=== PATIENT | male | born 1970 | race African-American/Black ===

== ENCOUNTER 2019-12-19 06:02 | Day surgery (SDC) | payer OTHER ==
[~2019-12-19] VITALS: Ht 170.2 cm; Wt 97.0 kg
[2019-12-19] MEDS ORDERED: CICL6.1H3 IH (06:39)
[2019-12-19] MEDS ORDERED: HYDR12.58 PO (06:39)
[2019-12-19] MEDS ORDERED: TRAZ-123 PO (06:39)
[2019-12-19] MEDS ORDERED: ATOR40TA59 PO (06:39)
[2019-12-19] MEDS ORDERED: FLUO60TA PO (06:39)
[2019-12-19] MEDS ORDERED: HYDROmorphone 2 MG/ML VIAL IV PRN (07:00)
[2019-12-19] MEDS ORDERED: ONDANSETRON PF 4 MG/2 ML VIAL. IV PRN (07:00)
[2019-12-19] MEDS ORDERED: LIDOCAINE 1% PF 2 ML VIAL. ID PRN (07:00)
[2019-12-19] MEDS ORDERED: fentaNYL PF VIAL 100 MCG/2 ML VIAL IV PRN ×2 (07:00)
[2019-12-19] MEDS ORDERED: IV RINGERS,LACTATED 1000ML 1,000 ML IV SCH (07:00)
[2019-12-19] MEDS ORDERED: PROCHLORPERAZINE 10 MG/2 ML VIAL. IV PRN (07:00)
[2019-12-19] MEDS ORDERED: BUPIVACAINE MPF 0.5% 30 ML VIAL. ONE (07:06)
[2019-12-19] MEDS ORDERED: BUPIVACAINE-EPI 0.5%-1:200000 MPF 30 ML VIAL. ONE (07:06)
[2019-12-19] MEDS ORDERED: DEXAMETHASONE SOD PHOS 4 MG/ML VIAL ONE (07:43)
[2019-12-19] MEDS ORDERED: ONDANSETRON PF 4 MG/2 ML VIAL. ONE (07:43)
[2019-12-19] MEDS ORDERED: MIDAZOLAM HCL/PF 2 MG/2 ML VIAL. ONE (07:43)
[2019-12-19] MEDS ORDERED: SUCCINYLCHOLINE 200 MG/10 ML VIAL. ONE (07:43)
[2019-12-19] MEDS ORDERED: PROPOFOL 20 ML IV ONE (07:43)
[2019-12-19] MEDS ORDERED: fentaNYL PF VIAL 100 MCG/2 ML VIAL ONE (07:43)
[2019-12-19] MEDS ORDERED: ROCURONIUM 50 MG/5 ML VIAL. ONE (07:43)
[2019-12-19] MEDS ORDERED: LIDOCAINE 2% PF 5 ML VIAL. ONE (07:43)
--- NOTE | 2019-12-19 08:11 | PDOC1 ---
History and Physical Date of Admission Date of Admission DATE: 12/19/19 TIME: 08:08 Identification/Chief Complaint Chief Complaint umbilical hernia Source Source: Chart review, Patient History of Present Illness History of Present Illness Ankush is a 49-year-old male inmate with a long-standing umbilical hernia. Of late this is become more tender. Denies nausea, vomiting, diarrhea. Past Medical History Cardiovascular: HTN Hepatobiliary: Other (hyperlipidemia) Past Surgical History Past Surgical History: No pertinent history Family History Family History: No Significant Social History Smoke: No ALCOHOL: none Drugs: None Current Medications Current Medications Current Medications Ondansetron HCl (Zofran) 4 mg PRN Q6HRS PRN IV NAUSEA/VOMITING; Start 12/19/19 at 07:00; Stop 12/20/19 at 06:59 Fentanyl Citrate (Fentanyl 2ml Vial) 25 mcg PRN Q5MIN PRN IV MILD PAIN 1-3; Start 12/19/19 at 07:00; Stop 12/20/19 at 06:59 Fentanyl Citrate (Fentanyl 2ml Vial) 50 mcg PRN Q5MIN PRN IV MODERATE TO SEVERE PAIN; Start 12/19/19 at 07:00; Stop 12/20/19 at 06:59 Morphine Sulfate (Morphine Sulfate) 1 mg PRN Q10MIN PRN IV SEVERE PAIN 7-10; Start 12/19/19 at 07:00; Stop 12/20/19 at 06:59 Ringer's Solution 1,000 ml @ 30 mls/hr Q24H IV Last administered on 12/19/19at 06:56; Start 12/19/19 at 07:00; Stop 12/19/19 at 18:59 Lidocaine HCl (Xylocaine-Mpf 1% 2ml Vial) 2 ml PRN 1X PRN ID PRIOR TO IV START; Start 12/19/19 at 07:00; Stop 12/20/19 at 06:59 Hydromorphone HCl (Dilaudid) 0.5 mg PRN Q10MIN PRN IV SEV PAIN, Second choice; Start 12/19/19 at 07:00; Stop 12/20/19 at 06:59 Prochlorperazine Edisylate (Compazine) 5 mg PACU PRN PRN IV NAUSEA, MRX1; Start 12/19/19 at 07:00; Stop 12/20/19 at 06:59 Levofloxacin/ Dextrose 100 ml @ 100 mls/hr 1X PREOP PRN IV PRIOR TO PROCEDURE; Start 12/19/19 at 06:00; Stop 12/19/19 at 18:00 Bupivacaine HCl/ Epinephrine Bitart (Sensorcain-Epi 0.5%-1:112840 Mpf) 30 ml STK-MED ONCE .ROUTE ; Start 12/19/19 at 07:06; Stop 12/19/19 at 07:07; Status DC Bupivacaine HCl (Sensorcaine Mpf 0.5%) 30 ml STK-MED ONCE .ROUTE ; Start 12/19/19 at 07:06; Stop 12/19/19 at 07:07; Status DC Propofol 20 ml @ As Directed STK-MED ONCE IV ; Start 12/19/19 at 07:43; Stop 12/19/19 at 07:43; Status DC Lidocaine HCl (Lidocaine Pf 2% Vial) 5 ml STK-MED ONCE .ROUTE ; Start 12/19/19 at 07:43; Stop 12/19/19 at 07:43; Status DC Ondansetron HCl (Zofran) 4 mg STK-MED ONCE .ROUTE ; Start 12/19/19 at 07:43; Stop 12/19/19 at 07:43; Status DC Dexamethasone Sodium Phosphate (Decadron) 4 mg STK-MED ONCE .ROUTE ; Start 12/19/19 at 07:43; Stop 12/19/19 at 07:43; Status DC Succinylcholine Chloride (Anectine) 200 mg STK-MED ONCE .ROUTE ; Start 12/19/19 at 07:43; Stop 12/19/19 at 07:43; Status DC Rocuronium [place] (Zemuron) 50 mg STK-MED ONCE .ROUTE ; Start 12/19/19 at 07:43; Stop 12/19/19 at 07:43; Status DC Fentanyl Citrate (Fentanyl 2ml Vial) 100 mcg STK-MED ONCE .ROUTE ; Start 12/19/19 at 07:43; Stop 12/19/19 at 07:44; Status DC Midazolam HCl (Versed) 2 mg STK-MED ONCE .ROUTE ; Start 12/19/19 at 07:43; Stop 12/19/19 at 07:44; Status DC Albuterol Sulfate (Ventolin Hfa) 1 puff 1X ONCE INH ; Start 12/19/19 at 08:15; Stop 12/19/19 at 08:16 Active Scripts Active Reported Hydrochlorothiazide Tablet (Hydrochlorothiazide) 12.5 Mg Tablet 12.5 Mg PO DAILY Fluoxetine Hcl 60 Mg Tablet 80 Mg PO DAILY Atorvastatin Calcium 40 Mg Tablet 40 Mg PO DAILY Trazodone Hcl 100 Mg Tablet 100 Mg PO HS [place] (Ciclesonide) 6.1 Gm Hfa.aer.ad 6.1 Gm IH BID Allergies Allergies: Coded Allergies: Penicillins (Verified Allergy, Intermediate, 12/19/19) ROS Review of System Negative with the exception of present complaints Physical Exam General: Alert, No acute distress HEENT: Atraumatic Lungs: Normal air movement Heart: RRR Abdomen: Soft, Other (nondistended, that is umbilical fullness which is partially reducible) Vitals Vitals Vital Signs Date Time Temp Pulse Resp B/P (MAP) Pulse Ox O2 Delivery O2 Flow Rate FiO2 12/19/19 06:47 98.4 66 20 149/85 97 Room Air 98.4 VTE Prophylaxis Ordered VTE Prophylaxis Devices: Yes VTE Pharmacological Prophylaxi: No Assessment/Plan Assessment/Plan Umbilical hernia Explained risks of repair including but not limited to bleeding, infection, recurrence. We'll proceed ROSALIND CHAVARRIA MD Dec 19, 2019 08:11
[2019-12-19] MEDS ORDERED: ALBUTEROL SULFATE 8GM INHALER. INH ONE (08:15)
[2019-12-19] MEDS ORDERED: GLYCOPYRROLATE 1 MG/5 ML VIAL. ONE (08:40)
[2019-12-19] MEDS ORDERED: NEOSTIGMINE METHYLSULFATE 5 MG/5 ML SYRINGE. ONE (08:40)
[2019-12-19] MEDS ORDERED: SEVOFLURANE 31 TO 60 MINUTES. IH ONE (08:44)
--- NOTE | 2019-12-19 09:18 | DISCH ---
DISCHARGE INSTRUCTIONS Condition on Discharge Condition on Discharge: Stable Activity After Discharge Activity Instructions for Disc: Activity as tolerated, Avoid exertion Lifting Instructions after Dis: No heavy lifting Diet after Discharge Diet after Discharge: Regular Wound Incision Care Wound/Incision Care: Ice to area for comfort Other wound/incision instructi: abdominal binder, dimas shower Thursday Follow-Up Follow up with: Mars two weeks ROSALIND CHAVARRIA MD Dec 19, 2019 09:18
--- NOTE | 2019-12-19 09:22 | PDOC ---
BRIEF OPERATIVE NOTE Date: Dec 19, 2019 Pre-Op Diagnosis incarcerated umbilical hernia Post-Op Diagnosis same Procedure Performed primary repair Surgeon Mars Anesthesia Type: General Blood Loss 5cc IV Fluid 500cc Specimens Obtained sack and incarcerated contents Findings incarcerated pre peritoneal fat Complications none Operative Note Wk # [id number] ROSALIND CHAVARRIA MD Dec 19, 2019 09:22
[2019-12-19] MEDS: MORPHINE SULFATE 2 MG/ML VIAL. IV PRN ×2 (09:43→09:53)
--- NOTE | 2019-12-19 09:49 | OP ---
DATE OF SURGERY: 12/19/2019 PREOPERATIVE DIAGNOSIS: Incarcerated umbilical hernia. POSTOPERATIVE DIAGNOSIS: Incarcerated umbilical hernia. PROCEDURE: Primary repair. SURGEON: Quinton Chavarria MD ANESTHESIA: General endotracheal. ESTIMATED BLOOD LOSS: 5 mL. INTRAVENOUS FLUIDS: 500 mL. DESCRIPTION OF PROCEDURE: The patient brought to the operating suite, given a general endotracheal anesthetic and the abdomen prepped and draped in usual sterile fashion. An infraumbilical incision was infiltrated with 0.5% plain Marcaine. Incision made and dissection carried down to the anterior sheath. The hernia was encircled with careful blunt dissection and a Migel drain placed around it. The umbilical skin was then freed from the hernia contents, which were then excised by ligating with 2-0 Vicryl. A small defect was then closed with interrupted inverted 0 PDS. A second row of 0 Vicryl in a running fashion was used to reinforce the repair. Correct sponge count was obtained. Good hemostasis was present. The umbilical skin was tacked to the underlying repair with 3-0 Vicryl. Skin closed with subcuticular 4-0 Monocryl. Steri-Strips and sterile dressing applied. Abdominal binder placed. The patient was awakened from his anesthetic and taken to the recovery room in satisfactory condition. QUINTON CHAVARRIA MD DR: DEX/izabella JOB#: [id number] / [id number]
[2019-12-19 10:15] VITALS: BP 136/85
== END 2019-12-19 10:40 | disposition home or self-care (01) ==
LOC: SURG 06:02
PROVIDERS: ATTEND Surgery
DX: K42.0 Umbilical hernia with obstruction, without gangrene (principal); I10 Essential (primary) hypertension; E78.00 Pure hypercholesterolemia, unspecified; K21.9 Gastro-esophageal reflux disease without esophagitis; F32.9 Major depressive disorder, single episode, unspecified; F41.9 Anxiety disorder, unspecified; F14.90 Cocaine use, unspecified, uncomplicated; E66.9 Obesity, unspecified; Z68.32 Body mass index [BMI] 32.0-32.9, adult; Z87.891 Personal history of nicotine dependence; Z87.39 Personal history of other diseases of the musculoskeletal system and connective tissue; Z88.0 Allergy status to penicillin
CPT/HCPCS: 49587; J0330; J1100; J1956; J2001; J2250; J2270; J2405; J2704; J2710; J3010; J3490; A7015